=== PATIENT | male | born 2005 | race Two or more races ===

== ENCOUNTER 2024-01-20 06:17 | Day surgery (SDC) | payer BC ==
[2024-01-16 10:28] LABS: Urine Bacteria None Seen /hpf (None Seen); Urine WBC None Seen /hpf (0 - 3)
[2024-01-16 10:47] LABS: Basophils # (auto) 0 10 ^3/uL (0-0.2); Basophils % (auto) 0.6 % (0.0-2.0); Eosinophils # (auto) 0.1 10 ^3/uL (0-0.8); Eosinophils % (auto) 2.2 % (0.0-7.0); Hematocrit 47.1 % (41.0-53.0); Hemoglobin 16.2 g/dL (13.5-17.5); Lymphocytes # (auto) 2.4 10 ^3/uL (0.4-5.4); Lymphocytes % (auto) 44.3 % (10.0-50.0); Mean Corpuscular Hgb Conc. 34.4 g/dL (32.0-36.0); Mean Corpuscular Volume 90.1 fL (80.0-100.0); Monocytes # (auto) 0.4 10 ^3/uL (0-1.3); Monocytes % (auto) 8.1 % (0.0-12.0); Neutrophils # (auto) 2.4 10 ^3/uL (1.6-8.6); Neutrophils % (auto) 44.8 % (37.0-80.0); Platelet Count (auto) 241 10^3/uL (140-450); Red Blood Cells 5.23 10^6/uL (4.5-5.90); Red Cell Distribution Width 12.7 % (11.8-14.3); White Blood Cell 5.5 10^3/uL (4.4-10.8)
[2024-01-16 10:50] LABS: Urine Blood Negative /uL (Negative); Urine Clarity Clear (Clear); Urine Color Light-Yellow (Yellow); Urine Protein, UAD Negative (Negative); Urine Urobilinogen Normal (Negative); Urine pH 5.5 (5.0-9.0)
[2024-01-16 10:59] LABS: INR 1.05 (0.9-1.15); Partial Thromboplastin Time 27.4 SEC (24.5-34.5); Prothrombin Time 11.1 sec (9.3-11.8)
[2024-01-16 11:33] LABS: Alanine Aminotransferase 20 U/L (7-40); Albumin 4.6 g/dL (3.2-4.8); Alkaline Phosphatase 83 U/L (46-116); Anion Gap 9 (5-15); Aspartate Aminotransferase 13 U/L (13-40); BUN/Creatinine Ratio 8.5 (10.0-20.0); Blood Urea Nitrogen 8 mg/dL (9-23); Calcium 10.3 mg/dL (8.7-10.4); Carbon Dioxide 28 mmol/L (20-31); Chloride 106 mmol/L (98-107); Glucose 77 mg/dL (74-106); Potassium 3.9 mmol/L (3.5-5.1); Sodium 143 mmol/L (136-145); Total Protein 7.3 g/dL (5.7-8.2)
[~2024-01-20] VITALS: Ht 177.8 cm; Wt 66.7 kg
[2024-01-20 06:25] VITALS: TEMP 98.5
[2024-01-20] MEDS: GABAPENTIN 400 MG CAP PO ONE (07:00)
[2024-01-20] MEDS: CELECOXIB 100 MG CAP PO ONE (07:00)
[2024-01-20] MEDS: ACETAMINOPHEN IV 1000 MG/100ML (10MG/ML) IV ONE (07:00)
[2024-01-20] MEDS ORDERED: HYDR1TAB97 PO (07:10)
[2024-01-20] MEDS ORDERED: ASPI-498 OR (07:12)
[2024-01-20] MEDS ORDERED: CEPH500C PO (07:12)
--- NOTE | 2024-01-20 07:20 | DVHOP2 ---
Operative Report - 2 Report Details Date: 01/20/24 Preop Diagnosis: Right knee anterior cruciate ligament tear Postop Diagnosis: Right knee anterior cruciate ligament tear with lateral meniscus tear Surgeon: Yehuda Blackwell MD Anesthesiologist: Manuel Murphy CRNA Anesthesia: General, Regional Implant: Arthrex quadriceps button x2, SwiveLock x1, internal brace x1 Consent: The patient was informed of the risks and benefits of the procedure. These include but are not limited to complications of anesthesia, postoperative infection, incomplete relief of symptoms, recurrence of symptoms, damage to blood vessels, nerves and tendons, deep venous thrombosis, pulmonary embolism and possible need for repeat surgery in the future. Complications: None Estimated Blood Loss: Less than 5 mL Indications for Surgery: The patient is a 18-year-old male who presented to the clinic with a history of knee pain. Clinical and radiological evaluation demonstrated complete ACL tear. He had an injury while playing soccer. Nonoperative and operative management options were discussed. Surgery in the form of knee arthroscopy with ACL reconstruction possible meniscus repair was discussed with the him and his mother. Benefits, risks and treatment alternatives were discussed. Specific complications of the surgery such as neurovascular injury, infection, arthrofibrosis, loss of limb or life were discussed. The patient decided to proceed with the surgical option. Name of Procedure Performed Right knee arthroscopy with ACL reconstruction using quadriceps autograft, partial lateral meniscectomy Procedure Details Procedure Details: The patient was identified in the preoperative holding area and the surgical site was marked. The consent was verified. The patient was brought into the operating room and placed supine on the operating table. General anesthesia was administered. A tourniquet was applied over the proximal thigh. All the bony prominences were appropriately padded. The knee was positioned appropriately. The extremity was now prepped and draped in the usual sterile manner. A timeout was called out to confirm the identity of the patient, the nature of surgery, the site of surgery, the availability of implants and x-rays and allergies to medications. The knee was examined under anesthesia and was found to have positive anterior drawer and Rui test. Dial test was negative. Valgus and varus stress tests were negative. GRAFT HARVEST: An incision was made from the superior pole of the patella to approximately 6 cm. The skin and the subcutaneous tissue were dissected. The quadriceps tendon was identified. The sheath was incised. Next, the insertion at the patellar border was released with the help of sharp dissection. The edge of the quadriceps tendon was now whipstitched with a FiberWire. The graft harvester was now inserted and slowly advanced superiorly under visualization to harvest around 7 cm of the quadriceps tendon. This was a full thickness quadriceps tendon harvest. The diameter was approximately 11 mm. This was augmented with an internal brace. It was prepared on both sides with the help of forest pathology teacher's guidelines and graft preparation technique. It was whipstitched at both ends and loaded onto the adjustable loop. KNEE ARTHROSCOPY: A standard anterolateral portal was established. A 30 scope was inserted. A standard anteromedial portal was established. A probe was inserted and the findings were as follows 1. Complete ACL tear 2. Intact medial meniscus 3. Intact medial compartment articular cartilage 4. Radial tear lateral meniscus, possible root tear that had healed 5. Intact PCL 6. No loose bodies 7. Normal patellofemoral joint 8. Intact lateral compartment articular cartilage NOTCHPLASTY AND FEMORAL TUNNEL PREPARATION: The ACL footprint was identified on the femoral side. This was debrided for better visualization. The rest of the ACL was removed with help of a shaver. A notchplasty was performed using a t unnel and approximately 5 mm of lateral wall was removed. Next an outside in jig was inserted. A small incision was made over the lateral distal femur. The skin and the subcutaneous tissue were dissected. The deep fascia was incised and then the iliotibial band was incised. The jig was inserted. Next a guidepin was inserted. Next a retroreamer was inserted on top of the guidepin. This was a 10.5 reamer based on the graft size. The femoral tunnel was drilled up to approximately 28 mm. Next, a loop was inserted through the femoral tunnel. TIBIAL TUNNEL PREPARATION: Next a tibial guide was inserted through the anteromedial portal. Next a guidewire was inserted through the jig. This was at the center of the ACL tibial footprint. A 11 reamer was used to drill the tunnel. Next the lasso loop was retrieved through the tibial tunnel. The graft was now brought into the operative field and the sutures were inserted into the loop and retrieved through the femoral side. The button was visualized entering into the tunnel with the scope in the anteromedial portal and it was flipped. This was confirmed by pulling on the tibial side and cycling the knee. Excellent fixation was noted. The adjustable loop was now pulled from the femoral side with some traction maintained on the tibial side so as to bring the graft within the knee and within the femoral tunnel. This was marked at 20 mm to confirm that adequate portion of the graft is inside the tunnel. Good graft isometry was noted by flexing and extending the knee. The tibial side was fixed with adjustable loop technique over a button. The internal brace was also used to augment the fixation by wrapping it around the button and then inserting it into the SwiveLock. A drill guide was used to drill the hole and then a tap was used. Next the SwiveLock anchor was used with the internal brace sutures and inserted into the tibia. Good fixation was noted. The knee joint was entered once again to assess the tension of the graft and this was noted to be adequate. The sutures on the femoral side, through the button were tied so as to doubly secure the graft on the femoral side. C-arm images were obtained throughout the procedure to confirm position of the implants. Irrigation was given. The quadriceps tendon was closed with nonabsorbable sutures, FiberWire tape. The deep tissue was closed with 2-0 Vicryl and the skin was closed with 3-0 Monocryl. Sterile dressing was applied including Steri-Strips and Xeroform. The knee was placed in a hinged range of motion brace set at -10 to 90 Disposition: Good, the patient was extubated and taken to the recovery without any complications. The patient was examined in the recovery and had intact neurovascular exam Plan: Weight-bear as tolerated, will need crutches for ambulation for the first 1 week. Brace range from 0 to 90 degrees. Follow-up in 1 to 2 weeks. Condition Good Disposition Home YEHUDA BLACKWELL MD Jan 20, 2024 07:20
[2024-01-20] MEDS ORDERED: EPINEPHrine HCL 1 MG/1 ML AMP ONE ×2 (07:43→07:55)
[2024-01-20] MEDS ORDERED: KETAMINE 50mg/ML 1ml syringe ONE (07:51)
[2024-01-20] MEDS ORDERED: DexAMETHasone SOD PHOS 10MG/1ML VIAL INJ ONE ×2 (07:51→07:55)
[2024-01-20] MEDS ORDERED: LIDOCAINE 2% (LOCAL ANESTH.) PF 5ml SDV ONE (07:51)
[2024-01-20] MEDS ORDERED: KETOROLAC TROMETH 30 MG/ML 1ML VIAL ONE (07:51)
[2024-01-20] MEDS ORDERED: ONDANSETRON HCL 4 MG/2 ML VIAL ONE (07:51)
[2024-01-20] MEDS ORDERED: GLYCOPYRROLATE 0.2 MG/ML 1ML VIAL ONE (07:51)
[2024-01-20] MEDS ORDERED: PROPOFOL 10 MG/ML 20 ML IV ONE (07:51)
[2024-01-20] MEDS ORDERED: fentaNYL CITRATE 100 MCG/2 ML VL ONE (07:51)
[2024-01-20] MEDS ORDERED: LIDOCAINE HCL 2% TOP JELLY 5ML TOP ONE (07:53)
[2024-01-20] MEDS ORDERED: BUPIVACAINE HCL 50 ML ONE ×2 (08:03→08:09)
[2024-01-20] MEDS ORDERED: ceFAZolin 2 GM/D5W100ml 100 ML IV ONE (08:09)
[2024-01-20] MEDS ORDERED: BACITRACIN TOP OINT 1 UD PKG TOP ONE (09:03)
[2024-01-20] MEDS: BUPIVACAINE 0.25% INJ 50ML VIAL ONE (09:40)
[2024-01-20] MEDS ORDERED: ESMOLOL HCL 10 ML IV ONE (09:54)
[2024-01-20 09:56] VITALS: O2SAT 100
[2024-01-20] MEDS ORDERED: hydrALAZINE HCL 20 MG/ML VL IV PRN (10:15)
[2024-01-20] MEDS ORDERED: ePHEDrine SULFATE 50 MG/ML AMP IV PRN (10:15)
[2024-01-20] MEDS ORDERED: fentaNYL CITRATE 100 MCG/2 ML VL IV PRN (10:15)
[2024-01-20] MEDS ORDERED: FLUMAZENIL 0.1 MG/ML INJ 10ML MDV IV PRN (10:15)
[2024-01-20] MEDS ORDERED: NALOXONE HCL 0.4 MG/ML VIAL IV PRN (10:15)
[2024-01-20] MEDS: HYDROmorphone HCL 2 MG/ML VL/or syr IV PRN (10:18)
[2024-01-20] MEDS: oxyCODONE HCL 5MG TAB PO PRN (10:31)
[2024-01-20 11:11] VITALS: BP 149/90; PULSE 89; RESP 15; O2SAT 96
[2024-01-20] MEDS ORDERED: HYDROmorphone HCL 2 MG/ML VL/or syr ONE (11:20)
[2024-01-20] MEDS: ONDANSETRON HCL 4 MG/2 ML VIAL IV PRN (11:21)
== END 2024-01-20 11:36 | disposition home or self-care (01) ==
LOC: SUR 06:17
PROVIDERS: ATTEND Orthopaedic Surgery Sports Medicine
DX: S83.511A Sprain of anterior cruciate ligament of right knee, initial encounter (principal); S83.281A Other tear of lateral meniscus, current injury, right knee, initial encounter; G89.18 Other acute postprocedural pain; Z79.82 Long term (current) use of aspirin; Z98.890 Other specified postprocedural states; X58.XXXA Exposure to other specified factors, initial encounter; Y93.66 Activity, soccer; Y92.89 Other specified places as the place of occurrence of the external cause; Y99.8 Other external cause status
CPT/HCPCS: 29888; 36415; 64447; 64450; 80053; 81001; 85025; 85610; 85730; C1713; J0171; J1100; J1171; J1885; J2003; J2405; J2704; J3010; J3490; J0131

== ENCOUNTER 2024-03-11 06:24 | Emergency (ER) | payer BC ==
[~2024-03-11] VITALS: Ht 177.8 cm; Wt 68.7 kg
[~2024-03-11 06:24] MED LIST: ASPI-498 OR; CEPH500C PO; HYDR1TAB97 PO
--- NOTE | 2024-03-11 06:56 | ED.PDOC ---
History of Present Illness(SKN HPI Comments 18 y.o male BIB mother, presents to the ED for an evaluation of wound check. Mother reports patient had right knee ACL sx done one month ago by Dr. Moran, had a follow up appointment on 03/05/24, in which he was placed on Keflex due to a suspected infection at the surgical site. Patient was then contacted by Dr. Moran and advised to come into the ED for surgical intervention. No fever, chill, bleeding or discharge from wound site. Chief Complaint: Lower Extremity Time Seen by MD: 06:23 Primary Care Provider: Dr. Glasgow History of Present Illness: Nurses Notes, Medications, Allergies Allergies: Coded Allergies: NO KNOWN ALLERGIES (Unverified , 01/16/24) Home Meds Active Scripts Cephalexin Monohydrate (Cephalexin) 500 Mg Cap, 1 CAP PO QID for 10 Days, #40 CAP Prov:YEHUDA HAMM MD 03/08/24 Cephalexin Monohydrate (Cephalexin) 500 Mg Cap, 1 CAP PO TID for 5 Days, #15 CAP Prov:YEHUDA HAMM MD 01/20/24 Aspirin (ASPIRIN 81) 81 Mg Tab, 81 MG OR DAILY for 7 Days, #7 TAB Prov:YEHUDA HAMM MD 01/20/24 Hydrocodone-Acetaminophen (Hydrocodone/Acetaminophen 5-325 mg) 1 Tab Tab, 1 TAB PO Q6HP PRN for 7 Days, #28 TAB Prov:YEHUDA HAMM MD 01/20/24 Information Source: Patient Mode of Arrival: Ambulatory Severity: Moderate Timing: Days Duration: Since onset Location: Extremities Mechanism: Preceding Wound History of: None Past Medical History PAST MEDICAL HISTORY: Denies Surgical History (Other): right ACL Family History Family History: Reviewed,noncontributory to illness Social History Smoker: Non-Smoker Alcohol: Denies ETOH Use Drugs: Denies Drug Use Lives In: Home Constitutional: denies: chills, diaphoresis, fatigue, fever, malaise, sweats, weakness, others EENTM: denies: blurred vision, double vision, ear bleeding, ear discharge, ear drainage, ear pain, ear ringing, eye pain, eye redness, hearing loss, mouth pain, mouth swelling, nasal discharge, nose bleeding, nose congestion, nose pain, photophobia, tearing, throat pain, throat swelling, voice changes, others Respiratory: denies: cough, hemoptysis, orthopnea, SOB at rest, shortness of breath, SOB with excertion, stridor, wheezing, others Cardiovascular: denies: chest pain, dizzy spells, diaphoresis, Dyspnea on exertion, edema, irregular heart beat, left arm pain, lightheadedness, palpitations, PND, syncope, others Gastrointestinal: denies: abdomen distended, abdominal pain, blood streaked bowels, constipated, diarrhea, dysphagia, difficulty swallowing, hematemesis, melena, nausea, poor appetite, poor fluid intake, rectal bleeding, rectal pain, vomiting, others Genitourinary: denies: burning, dysuria, flank pain, frequency, hematuria, incontinence, penile discharge, penile sore, pain, testicle pain, testicle swelling, urgency, others Neurological: denies: dizziness, fainting, headache, left sided numbness, left sided weakness, numbness, paresthesia, pre-existing deficit, right sided numbness, right sided weakness, seizure, speech problems, tingling, tremors, weakness, others Musculoskeletal: denies: back pain, gout, joint pain, joint swelling, muscle pain, muscle stiffness, neck pain, others Integumetry: reports: wounds (right knee ); denies: bruises, change in color, change in hair/nails, dryness, laceration, lesions, lumps, rash, others Allergic/Immunocompromised: denies: Difficulty Healing, Frequent Infections, Hives, Itching, others Hematologic/Lymphatic: denies: anemia, blood clots, easy bleeding, easy bruising, swollen glands, others Endocrine: denies: excessive hunger, excessive sweating, excessive thirst, excessive urination, flushing, intolerance to cold, intolerance to heat, unexplained weight gain, unexplained weight loss, others Psychiatric: denies: anxiety, bipolar disorder, depression, hopeless, panic disorder, schizophrenia, sleepless, suicidal, others All Other Systems: Reviewed and Negative Physical Exam General Appearance: No Apparent Distress, Normal HEENT: Normal ENT Inspection, Pharynx Normal, TMs Normal Neck: Full Range of Motion, Non-Tender, Normal, Normal Inspection Respiratory: Chest Non-Tender, Lungs Clear, No Accessory Muscle Use, No Respiratory Distress, Normal Breath Sounds Cardiovascular: No Edema, No JVD, No Murmur, No Gallop, Normal Peripheral Pulses, Regular Rate/Rhythm Breast Exam: Deferred Gastrointestinal: No Organomegaly, Non Tender, No Pulsatile Mass, Normal Bowel Sounds, Soft Genitalia: Deferred Pelvic: Deferred Rectal: Deferred Extremities: No calf tenderness, Normal capillary refill, Normal inspection Musculoskeletal : Apperance: Normal Neurologic: Alert, physiological chemist II-XII nml as Tested, No Motor Deficits, Normal Affect, Normal Mood, No Sensory Deficits Cerebellar Function: Normal Reflexes: Normal Skin: Dry, Normal Color, Warm, Other (surgical site infection right knee ) Lymphatic: No Adenopathy Was a procedure done? Was a procedure done?: No Differential Diagnosis (INTG) Differential Diagnosis: Cellulitis, Contact Dermatitis Differential Diagnosis: Cellulitis X-Ray, Labs, Meds, VS Vital Signs Date Time Temp Pulse Resp B/P (MAP) Pulse Ox O2 Delivery O2 Flow Rate FiO2 03/11/24 08:57 69 15 98 Room Air* 0 N/A Nasal Cannula* 03/11/24 07:28 98.7 64 17 119/74 (89) 97 98.7 03/11/24 06:32 97.9 68 18 123/75 (91) 99 Lab Test 03/11/24 06:38 Range/Units White Blood Count 5.6 4.4-10.8 10^3/uL Red Blood Count 5.16 4.5-5.90 10^6/uL Hemoglobin 16.2 13.5-17.5 g/dL Hematocrit 46.3 41.0-53.0 % Mean Corpuscular Volume 89.8 80.0-100.0 fL Mean Corpuscular Hemoglobin 31.4 28.0-32.0 pg Mean Corpuscular Hemoglobin Concent 35.0 32.0-36.0 g/dL Red Cell Distribution Width 12.9 11.8-14.3 % Platelet Count 244 140-450 10^3/uL Mean Platelet Volume 8.1 6.9-10.8 fL Neutrophils (%) (Auto) 51.2 37.0-80.0 % Lymphocytes (%) (Auto) 38.7 10.0-50.0 % Monocytes (%) (Auto) 6.5 0.0-12.0 % Eosinophils (%) (Auto) 3.0 0.0-7.0 % Basophils (%) (Auto) 0.6 0.0-2.0 % Neutrophils # (Auto) 2.9 1.6-8.6 10 ^3/uL Lymphocytes # (Auto) 2.2 0.4-5.4 10 ^3/uL Monocytes # (Auto) 0.4 0-1.3 10 ^3/uL Eosinophils # (Auto) 0.2 0-0.8 10 ^3/uL Basophils # (Auto) 0 0-0.2 10 ^3/uL Nucleated Red Blood Cells 0.1 % Erythrocyte Sedimentation Rate 2 0-20 mm/hr Sodium Level 141 136-145 mmol/L Potassium Level 4.2 3.5-5.1 mmol/L Chloride Level 106 98-107 mmol/L Carbon Dioxide Level 27 20-31 mmol/L Anion Gap 8 5-15 Blood Urea Nitrogen 14 9-23 mg/dL Creatinine 0.91 0.700-1.30 mg/dL Glomerular Filtration Rate Calc 124 >90 mL/min BUN/Creatinine Ratio 15.4 10.0-20.0 Serum Glucose 94 74-106 mg/dL Lactic Acid Level 0.7 0.4-2.0 mmol/L Calcium Level 10.4 8.7-10.4 mg/dL Total Bilirubin 0.5 0.2-1.0 mg/dL Aspartate Amino Transferase (AST) 16 13-40 U/L Alanine Aminotransferase (ALT) 18 7-40 U/L Alkaline Phosphatase 87 46-116 U/L C-Reactive Protein High Sensitivity 0.04 <1.0 mg/dL Total Protein 7.2 5.7-8.2 g/dL Albumin 4.7 3.2-4.8 g/dL X-Ray, Labs, Meds, VS Comment This 18 old male presents to the emergency room secondary to a possible infection to his right knee status post right ACL repair. However, exam showed no erythema and a healing surgical incision. Labs: CBC, CMP, lactic acid, ESR and CRP were all normal. The patient's operating surgeon and examined the patient and his agrees with the patient is appropriate for discharge home. As such, the patient discharged home with routine follow up. The patient was provided with a preserved antibiotics to use if the patient develops a infection the future date. Otherwise, the patient was discharged back home. Time of 1ST Reevaluation: 06:54 Reevaluation 1ST: Unchanged Patient Education/Counseling: Diagnosis, Treatment, Prognosis Family Education/Counseling: Diagnosis, Treatment, Prognosis Additional Information I reviewed the following notes from patient's past medical encounters: LAB, Right XRAY The following tests were ordered, and results were reviewed by me: LAB Additional Information was gathered from interviewing the following independent historians: Mother I reviewed and agreed with the following test results read by other providers: right knee X-Ray and CXR I discussed treatment and results with medical personnel, orthopedic surgeon, and mother [place] [address] Ph: [phone] DIAGNOSTIC IMAGING Diagnostic Imaging Report : [id number] Signed PATIENT: BELIA STONE ACCT: [id number] UNIT: [id number] : 2005 LOC: ER ROOM / BED: / AGE / SEX: 18 / M ADM STATUS: REG ER SERVICE 5 ORDERING PHYSICIAN: ELIANA SYED MD PROCEDURE(s): RKN3 - R KNEE 3V XRAY REASON: pain ORDER NUMBER(s): [id number], ACCESSION NUMBER(s): [id number] CLINICAL INFORMATION: 18 years old, Male; pain. TECHNIQUE: 3 views of the right knee knee were obtained. COMPARISON: None FINDINGS: No acute fracture or dislocation. Postsurgical changes of prior ACL reconstruction. Small to moderate joint effusion. Mild soft tissue swelling in the anterior aspect of the knee. IMPRESSION: 1. No evidence of acute bony abnormality. 2. Postsurgical changes of prior ACL reconstruction. If there is clinical concern about the integrity of the ACL reconstruction, MRI could be obtained. ATED BY: MIHIR DELA CRUZ DO DICTATED DATE/TIME: 03/11/24728 SIGNED BY: MIHIR DELA CRUZ DO SIGNED DATE/TIME: 03/11/24728 CC: [address] [address] Ph: [phone] DIAGNOSTIC IMAGING Diagnostic Imaging Report : [id number] Signed PATIENT: BELIA STONE ACCT: [id number] UNIT: [id number] : 2005 LOC: ER ROOM / BED: / AGE / SEX: 18 / M ADM STATUS: REG ER SERVICE 5 ORDERING PHYSICIAN: ELIANA SYED MD PROCEDURE(s): CXRP - CHEST PORTABLE REASON: pain ORDER NUMBER(s): [id number], ACCESSION NUMBER(s): [id number] CHEST RADIOGRAPH Indication: pain Technique: Single frontal view of the chest was obtained Comparison: None FINDINGS: Lines and Tubes: None Lungs: No focal consolidation. Pleura: No effusion. No pneumothorax. Cardiomediastinal contours: Unremarkable Bones: No acute osseous abnormality. IMPRESSION: 1. No acute cardiopulmonary disease. ATED BY: ELVIA GONZALEZ MD DICTATED DATE/TIME: 03/11/24717 SIGNED BY: ELVIA GONZALEZ MD SIGNED DATE/TIME: 03/11/24717 CC: Departure 1 Departure Time of Disposition: 10:34 Impression: Primary Impression: Right knee pain Disposition: 01 HOME / SELF CARE / HOMELESS Condition: Good Discharged With: Self, Relative (Mother) Critical Care Note Critical Care Time?: No Stability Stability form required: No I personally scribed for ELIANA SYED MD ([email or web address]) on 03/11/24 at 06:56. Electronically submitted by Janene Roblero ([facility]). I personally scribed for ELIANA SYED MD ([email or web address]) on 03/11/24 at 10:08. Electronically submitted by Janene Roblero ([facility]). I personally scribed for ELIANA SYED MD ([email or web address]) on 03/11/24 at 10:37. E lectronically submitted by Janene Roblero ([facility]). ELIANA SYED MD Mar 11, 2024 06:56
[2024-03-11 07:10] LABS: Basophils # (auto) 0 10 ^3/uL (0-0.2); Basophils % (auto) 0.6 % (0.0-2.0); Eosinophils # (auto) 0.2 10 ^3/uL (0-0.8); Hematocrit 46.3 % (41.0-53.0); Hemoglobin 16.2 g/dL (13.5-17.5); Lymphocytes # (auto) 2.2 10 ^3/uL (0.4-5.4); Lymphocytes % (auto) 38.7 % (10.0-50.0); Mean Corpuscular Hemoglobin 31.4 pg (28.0-32.0); Mean Corpuscular Volume 89.8 fL (80.0-100.0); Monocytes # (auto) 0.4 10 ^3/uL (0-1.3); Monocytes % (auto) 6.5 % (0.0-12.0); Neutrophils # (auto) 2.9 10 ^3/uL (1.6-8.6); Neutrophils % (auto) 51.2 % (37.0-80.0); Nucleated Red Blood Cells % 0.1 %; Platelet Count (auto) 244 10^3/uL (140-450); Red Blood Cells 5.16 10^6/uL (4.5-5.90); Red Cell Distribution Width 12.9 % (11.8-14.3); White Blood Cell 5.6 10^3/uL (4.4-10.8)
--- NOTE | 2024-03-11 07:21 | DVH ---
CHEST RADIOGRAPH Indication: pain Technique: Single frontal view of the chest was obtained Comparison: None FINDINGS: Lines and Tubes: None Lungs: No focal consolidation. Pleura: No effusion. No pneumothorax. Cardiomediastinal contours: Unremarkable Bones: No acute osseous abnormality. IMPRESSION: 1. No acute cardiopulmonary disease.
[2024-03-11 07:28] VITALS: BP 119/74; TEMP 98.7
--- NOTE | 2024-03-11 07:32 | DVH ---
CLINICAL INFORMATION: 18 years old, Male; pain. TECHNIQUE: 3 views of the right knee knee were obtained. COMPARISON: None FINDINGS: No acute fracture or dislocation. Postsurgical changes of prior ACL reconstruction. Small t o moderate joint effusion. Mild soft tissue swelling in the anterior aspect of the knee. IMPRESSION: 1. No evidence of acute bony abnormality. 2. Postsurgical changes of prior ACL reconstruction. If there is clinical concern about the integrity of the ACL reconstruction, MRI could be obtained.
[2024-03-11 07:42] LABS: Alanine Aminotransferase 18 U/L (7-40); Albumin 4.7 g/dL (3.2-4.8); Alkaline Phosphatase 87 U/L (46-116); Anion Gap 8 (5-15); Aspartate Aminotransferase 16 U/L (13-40); BUN/Creatinine Ratio 15.4 (10.0-20.0); Bilirubin, Total 0.5 mg/dL (0.2-1.0); Blood Urea Nitrogen 14 mg/dL (9-23); Calcium 10.4 mg/dL (8.7-10.4); Carbon Dioxide 27 mmol/L (20-31); Chloride 106 mmol/L (98-107); Glucose 94 mg/dL (74-106); Potassium 4.2 mmol/L (3.5-5.1); Sodium 141 mmol/L (136-145); Total Protein 7.2 g/dL (5.7-8.2)
[2024-03-11 08:57] VITALS: PULSE 69; RESP 15; O2SAT 98
[2024-03-11 09:46] LABS: Erythrocyte Sedimentation Rate 2 mm/hr (0-20)
[2024-03-11] MEDS ORDERED: CEPH500C PO (10:38)
== END 2024-03-11 10:53 | disposition home or self-care (01) ==
LOC: ER 06:24
DX: M25.561 Pain in right knee (principal); Z79.899 Other long term (current) drug therapy; Z79.84 Long term (current) use of oral hypoglycemic drugs; Z98.890 Other specified postprocedural states
CPT/HCPCS: 36415; 71045; 73562; 80053; 83605; 85025; 85652; 86141; 87040